=== PATIENT | female | born 1930 | race Two or more races ===

== ENCOUNTER 2017-04-15 11:24 | Inpatient (IN) | payer OTHER ==
[~2017-04-15] VITALS: Ht 160 cm; Wt 54.4 kg
[~2017-04-15 11:24] MED LIST: ABILIFY5 MG; ALANINE; ALTACE1.25 M1 PO; AMBIEN10 MG; APETEX LIQ790 MG/15; ARICEPT10 MG; CALCIUM + D SO1 EACH; CARDIZEM30 MG; CLONAZEPAM1 MG; COREG CR10 MG; COZAAR100 MG; CRESTOR10 MG; DEPAKOTE ER500 MG; FOLIC ACID-VIT1 EACH; FOLTX TABLET1 TAB; JANUVIA25 MG PO; LEVALBUTER1.25 MG/3; MAGNESIUM400 MG; METRONIDAZ500 MG/100 PO; MIRALAX17 GM; MONTELUKAST SOD10 MG; NORVASC10 MG; OMEGA-3 KRILL1 EAC4; PEPCID20 MG PO; PLAVIX75 MG; POTASSIUM99 M1; PROTONIX20 MG PO; PYRIDIUM200 MG PO; SINGULAIR10 MG PO; SYNTHROID200 MCG; XOPENEX1.25 MG/0. IH; ZANTAC300 MG
[2017-05-03] MEDS ORDERED: METRONIDAZ500 MG/100 PO (10:16)
[2017-05-03] MEDS ORDERED: ARICEPT10 MG PO (10:17)
[2017-05-03] MEDS ORDERED: XOPENEX0.63 MG/3 IH (10:18)
[2017-05-03] MEDS ORDERED: CARDIZEM30 MG PO (10:19)
[2017-05-03] MEDS ORDERED: NITROGLYCERIN1 EACH TD (10:19)
[2017-05-03] MEDS ORDERED: NEURONTIN300 MG PO (10:20)
[2017-05-03] MEDS ORDERED: PROTONIX20 MG PO (10:23)
[2017-05-03] MEDS ORDERED: PYRIDIUM200 MG PO (10:25)
[2017-05-03] MEDS ORDERED: MINOCIN100 MG PO (10:27)
[2017-05-03] MEDS ORDERED: ZOLPIDEM TARTRA10 MG PO (10:29)
[2017-05-03] MEDS ORDERED: Coreg 6.25MG TABLET PO (10:29)
[2017-05-03] MEDS ORDERED: Pulmicort 0.5 MG/2 M IH (10:29)
[2017-05-03] MEDS ORDERED: Intestinex CAP PO (10:29)
[2017-05-03] MEDS ORDERED: Neurin-Sl Tablet Sl SL (10:29)
== END 2017-05-03 16:32 | disposition home or self-care (01) | DRG 372 ==
LOC: ER 11:24 → MEDI 13:24 → ICU-2 13:24 → SEC-K 13:24 → MEDJ 14:57 → SEC-K 14:57 → ICU-2 15:38 → O/R 15:46 → MEDI 17:20
PROC: 4A12X4Z Monitoring of Cardiac Electrical Activity, External Approach (ICD-10-PCS; 2017-04-16)
PROC: BB24Y0Z Computerized Tomography (CT Scan) of Bilateral Lungs using Other Contrast, Unenhanced and Enhanced (ICD-10-PCS; 2017-04-17)
PROC: 3E0F7GC Introduction of Other Therapeutic Substance into Respiratory Tract, Via Natural or Artificial Opening (ICD-10-PCS; principal; 2017-04-18)
PROC: BW24Y0Z Computerized Tomography (CT Scan) of Chest and Abdomen using Other Contrast, Unenhanced and Enhanced (ICD-10-PCS; 2017-04-18)
PROC: 02HV33Z Insertion of Infusion Device into Superior Vena Cava, Percutaneous Approach (ICD-10-PCS; 2017-04-18)
PROC: 4A033R1 Measurement of Arterial Saturation, Peripheral, Percutaneous Approach (ICD-10-PCS; 2017-04-27)
DX: A04.72 Enterocolitis due to Clostridium difficile, not specified as recurrent (principal); N39.0 Urinary tract infection, site not specified; F05 Delirium due to known physiological condition; J90 Pleural effusion, not elsewhere classified; K92.1 Melena; B37.0 Candidal stomatitis; J95.811 Postprocedural pneumothorax; E03.8 Other specified hypothyroidism; E11.65 Type 2 diabetes mellitus with hyperglycemia; E11.43 Type 2 diabetes mellitus with diabetic autonomic (poly)neuropathy; K31.84 Gastroparesis; E11.319 Type 2 diabetes mellitus with unspecified diabetic retinopathy without macular edema; I25.10 Atherosclerotic heart disease of native coronary artery without angina pectoris; I48.0 Paroxysmal atrial fibrillation; E86.0 Dehydration; Z74.01 Bed confinement status; D52.0 Dietary folate deficiency anemia; B96.5 Pseudomonas (aeruginosa) (mallei) (pseudomallei) as the cause of diseases classified elsewhere; B96.1 Klebsiella pneumoniae [K. pneumoniae] as the cause of diseases classified elsewhere; Z16.24 Resistance to multiple antibiotics; J45.998 Other asthma; I11.0 Hypertensive heart disease with heart failure; I50.9 Heart failure, unspecified; J20.9 Acute bronchitis, unspecified

== ENCOUNTER 2017-07-19 09:05 | Inpatient (IN) | payer OTHER ==
[~2017-07-19] VITALS: Ht 157.5 cm; Wt 63.5 kg
[~2017-07-19 09:05] MED LIST changes: +ARICEPT10 MG PO; +CARDIZEM30 MG PO; +Coreg 6.25MG TABLET PO; +Intestinex CAP PO; +MINOCIN100 MG PO; +NEURONTIN300 MG PO; +NITROGLYCERIN1 EACH TD; +Neurin-Sl Tablet Sl SL; +Pulmicort 0.5 MG/2 M IH; +XOPENEX0.63 MG/3 IH; +ZOLPIDEM TARTRA10 MG PO
[2017-08-01] MEDS ORDERED: Intestinex CAP PO (08:40)
[2017-08-01] MEDS ORDERED: Neurin-Sl Tablet Sl SL (08:40)
[2017-08-01] MEDS ORDERED: CETIRIZINE1 MG/1 ML PO (13:17)
[2017-08-01] MEDS ORDERED: XOPENEX0.63 MG/3 IH (13:18)
[2017-08-01] MEDS ORDERED: DILTIAZEM HCL30 MG PO (13:19)
[2017-08-01] MEDS ORDERED: NITROGLYCERIN1 EAC1 TD (13:19)
[2017-08-01] MEDS ORDERED: ALTACE10 MG PO (13:22)
== END 2017-08-01 14:06 | DRG 689 ==
LOC: ER 09:10 → MEDJ 10:27
PROC: 8E0ZXY6 Isolation (ICD-10-PCS; 2017-07-19)
PROC: 02HV33Z Insertion of Infusion Device into Superior Vena Cava, Percutaneous Approach (ICD-10-PCS; 2017-07-20)
PROC: BW40ZZZ Ultrasonography of Abdomen (ICD-10-PCS; 2017-07-22)
PROC: 3E0F7GC Introduction of Other Therapeutic Substance into Respiratory Tract, Via Natural or Artificial Opening (ICD-10-PCS; principal; 2017-07-23)
PROC: 4A033R1 Measurement of Arterial Saturation, Peripheral, Percutaneous Approach (ICD-10-PCS; 2017-07-23)
DX: N39.0 Urinary tract infection, site not specified (principal); J69.0 Pneumonitis due to inhalation of food and vomit; I25.810 Atherosclerosis of coronary artery bypass graft(s) without angina pectoris; J44.1 Chronic obstructive pulmonary disease with (acute) exacerbation; B37.49 Other urogenital candidiasis; G30.8 Other Alzheimer's disease; F02.80 Dementia in other diseases classified elsewhere, unspecified severity, without behavioral disturbance, psychotic disturbance, mood disturbance, and anxiety; I10 Essential (primary) hypertension; E03.8 Other specified hypothyroidism; E11.42 Type 2 diabetes mellitus with diabetic polyneuropathy; E11.43 Type 2 diabetes mellitus with diabetic autonomic (poly)neuropathy; K31.84 Gastroparesis; D63.8 Anemia in other chronic diseases classified elsewhere; Z74.01 Bed confinement status; B96.5 Pseudomonas (aeruginosa) (mallei) (pseudomallei) as the cause of diseases classified elsewhere; Z16.24 Resistance to multiple antibiotics; I48.0 Paroxysmal atrial fibrillation; N39.498 Other specified urinary incontinence; E11.319 Type 2 diabetes mellitus with unspecified diabetic retinopathy without macular edema; B95.2 Enterococcus as the cause of diseases classified elsewhere

== ENCOUNTER 2017-09-06 08:19 | Inpatient (IN) | payer OTHER ==
[~2017-09-06] VITALS: Ht 152.4 cm; Wt 56.7 kg
[~2017-09-06 08:19] MED LIST changes: +ALTACE10 MG PO; +CETIRIZINE1 MG/1 ML PO; +DILTIAZEM HCL30 MG PO; +NITROGLYCERIN1 EAC1 TD
[2017-09-19] MEDS ORDERED: ARICEPT10 MG PO (13:23)
[2017-09-19] MEDS ORDERED: LORATADINE10 MG PO (13:23)
[2017-09-19] MEDS ORDERED: DILTIAZEM HCL30 MG PO (13:24)
[2017-09-19] MEDS ORDERED: FERROUS SU220 MG/5 M PO (13:24)
[2017-09-19] MEDS ORDERED: AMIODARONE HCL200 MG PO (13:24)
[2017-09-19] MEDS ORDERED: NITROGLYCERIN1 EACH TD (13:25)
[2017-09-19] MEDS ORDERED: ABILIFY5 MG PO (13:25)
[2017-09-19] MEDS ORDERED: RAMIPRIL5 MG PO (13:25)
[2017-09-19] MEDS ORDERED: FUROSEMIDE10 MG/1 M1 IV (13:32)
[2017-09-19] MEDS ORDERED: MAGNESIUM400 MG PO (13:33)
[2017-09-19] MEDS ORDERED: PEPCID20 MG PO (13:33)
[2017-09-19] MEDS ORDERED: PROTONIX20 MG PO (13:34)
[2017-09-19] MEDS ORDERED: LEVOTHYROXINE137 MCG PO (13:34)
[2017-09-19] MEDS ORDERED: FOLIC ACID1 MG PO (13:35)
[2017-09-19] MEDS ORDERED: INTESTINEX680 M1 PO (13:36)
[2017-09-19] MEDS ORDERED: AMIODARONE HCL200 MG NGT (13:40)
== END 2017-09-19 18:07 | disposition home health service (06) | DRG 190 ==
LOC: ER 08:19 → MEDI 12:21
PROC: 3E0F7GC Introduction of Other Therapeutic Substance into Respiratory Tract, Via Natural or Artificial Opening (ICD-10-PCS; principal; 2017-09-06)
PROC: 4A033R1 Measurement of Arterial Saturation, Peripheral, Percutaneous Approach (ICD-10-PCS; 2017-09-06)
PROC: 4A12X4Z Monitoring of Cardiac Electrical Activity, External Approach (ICD-10-PCS; 2017-09-06)
PROC: 02HV33Z Insertion of Infusion Device into Superior Vena Cava, Percutaneous Approach (ICD-10-PCS; 2017-09-07)
PROC: B246ZZZ Ultrasonography of Right and Left Heart (ICD-10-PCS; 2017-09-10)
DX: J44.1 Chronic obstructive pulmonary disease with (acute) exacerbation (principal); I50.33 Acute on chronic diastolic (congestive) heart failure; N39.0 Urinary tract infection, site not specified; I25.810 Atherosclerosis of coronary artery bypass graft(s) without angina pectoris; J45.41 Moderate persistent asthma with (acute) exacerbation; J90 Pleural effusion, not elsewhere classified; J20.9 Acute bronchitis, unspecified; J44.0 Chronic obstructive pulmonary disease with (acute) lower respiratory infection; G30.8 Other Alzheimer's disease; F02.80 Dementia in other diseases classified elsewhere, unspecified severity, without behavioral disturbance, psychotic disturbance, mood disturbance, and anxiety; E11.43 Type 2 diabetes mellitus with diabetic autonomic (poly)neuropathy; K31.84 Gastroparesis; Z74.01 Bed confinement status; E03.8 Other specified hypothyroidism; B96.29 Other Escherichia coli [E. coli] as the cause of diseases classified elsewhere; Z16.12 Extended spectrum beta lactamase (ESBL) resistance; E11.65 Type 2 diabetes mellitus with hyperglycemia; I35.0 Nonrheumatic aortic (valve) stenosis; I48.0 Paroxysmal atrial fibrillation; I11.0 Hypertensive heart disease with heart failure; K29.60 Other gastritis without bleeding; K21.9 Gastro-esophageal reflux disease without esophagitis; D63.8 Anemia in other chronic diseases classified elsewhere; E83.42 Hypomagnesemia; E83.39 Other disorders of phosphorus metabolism

== ENCOUNTER 2017-10-11 12:01 | Inpatient (IN) | payer OTHER ==
[~2017-10-11] VITALS: Ht 152.4 cm; Wt 54.4 kg
[~2017-10-11 12:01] MED LIST changes: +ABILIFY5 MG PO; +AMIODARONE HCL200 MG NGT; +AMIODARONE HCL200 MG PO; +FERROUS SU220 MG/5 M PO; +FOLIC ACID1 MG PO; +FUROSEMIDE10 MG/1 M1 IV; +INTESTINEX680 M1 PO; +LEVOTHYROXINE137 MCG PO; +LORATADINE10 MG PO; +MAGNESIUM400 MG PO; +RAMIPRIL5 MG PO
[2017-10-21] MEDS ORDERED: DIPHENHIST25 MG PO (14:14)
[2017-10-21] MEDS ORDERED: LORATADINE10 MG PO (14:15)
[2017-10-21] MEDS ORDERED: FLAGYL 250 MG PO (14:15)
== END 2017-10-21 17:16 | disposition home health service (06) | DRG 690 ==
LOC: ER 12:01 → SURH 13:43 → SEC-K 13:43 → SURH 14:10 → MEDJ 10-13 14:36 → MEDI 10-13 14:36 → MEDJ 10-17 22:41
PROC: 4A12X4Z Monitoring of Cardiac Electrical Activity, External Approach (ICD-10-PCS; 2017-10-11)
PROC: 3E0F7GC Introduction of Other Therapeutic Substance into Respiratory Tract, Via Natural or Artificial Opening (ICD-10-PCS; principal; 2017-10-12)
PROC: 4A033R1 Measurement of Arterial Saturation, Peripheral, Percutaneous Approach (ICD-10-PCS; 2017-10-12)
DX: N39.0 Urinary tract infection, site not specified (principal); I50.20 Unspecified systolic (congestive) heart failure; K21.9 Gastro-esophageal reflux disease without esophagitis; I25.10 Atherosclerotic heart disease of native coronary artery without angina pectoris; I48.0 Paroxysmal atrial fibrillation; E03.8 Other specified hypothyroidism; J45.998 Other asthma; I35.0 Nonrheumatic aortic (valve) stenosis; E11.43 Type 2 diabetes mellitus with diabetic autonomic (poly)neuropathy; K31.84 Gastroparesis; I11.0 Hypertensive heart disease with heart failure; B96.1 Klebsiella pneumoniae [K. pneumoniae] as the cause of diseases classified elsewhere; B96.29 Other Escherichia coli [E. coli] as the cause of diseases classified elsewhere; Z16.12 Extended spectrum beta lactamase (ESBL) resistance; E83.39 Other disorders of phosphorus metabolism; E83.42 Hypomagnesemia; D64.89 Other specified anemias; E77.8 Other disorders of glycoprotein metabolism